=== PATIENT | female | born 1955 | race Caucasian/White ===

== ENCOUNTER → 2017-03-12 | Outpatient (CLI) | payer OTHER ==
[~2017-03-12] MED LIST: LORTAB 5/500 501 TAB PO
== END ==
LOC: MC.RAD 11:06
DX: Z12.31 Encounter for screening mammogram for malignant neoplasm of breast (principal)

== ENCOUNTER → 2021-05-16 | Outpatient (CLI) | payer MEDICARE ==
[~2021-05-16] MED LIST changes: +COZAAR 25MG25 MG/TAB PO; +GLUCOPHAGE500 MG/TAB PO; +LIPITOR 10MG10 MG PO; +MASON NATURAL2000 IU PO
== END ==
LOC: COL.RAD 04-19 14:45
DX: N95.0 Postmenopausal bleeding (principal)

== ENCOUNTER 2021-08-21 07:21 | Day surgery (SDC) | payer MEDICARE ==
[~2021-08-21] VITALS: Ht 167.6 cm; Wt 90.1 kg
[~2021-08-21 07:21] MED LIST changes: -COZAAR 25MG25 MG/TAB PO; -GLUCOPHAGE500 MG/TAB PO; -LIPITOR 10MG10 MG PO; -MASON NATURAL2000 IU PO
[2021-08-21 08:26] VITALS: BP 117/65; PULSE 111; TEMP 97.4
[2021-08-21] MEDS ORDERED: COZAAR 25MG25 MG/TAB PO (08:31)
[2021-08-21] MEDS ORDERED: GLUCOPHAGE500 MG/TAB PO (08:31)
[2021-08-21] MEDS ORDERED: LIPITOR 10MG10 MG PO (08:32)
[2021-08-21] MEDS ORDERED: MASON NATURAL2000 IU PO (08:32)
[2021-08-21 10:35] VITALS: BP 91/66; PULSE 92; TEMP 97.3
--- NOTE | 2021-08-21 10:35 | NUR ---
Patient arrived back into [facility]. Report received from MURTAZA Carlos and DELMY Engel. Patient awake and alert x4, reports doing well. No complaint of pain or nausea. Patient requesting orange juice and toast.
[2021-08-21 10:50] VITALS: BP 98/61; PULSE 97; TEMP 97.7
--- NOTE | 2021-08-21 10:50 | NUR ---
Patient doing well. Tolerating food and drink with no complaint of nausea or vomiting. Patient states pain is tolerable.
[2021-08-21 11:05] VITALS: BP 107/74; PULSE 95
--- NOTE | 2021-08-21 11:05 | NUR ---
Patient tolerated food and drink. Pain is controlled. When through discharge instructions with patient and patient's . Questions answered. Verbalized understanding. IV removed with no complications. Patient went to restroom and voided. Got dressed independently.
--- NOTE | 2021-08-21 11:10 | NUR ---
Patient escorted to patient entrance via wheelchair. Got into personal vehicle independently. Patient left in the care of her , Juanita.
== END 2021-08-21 11:10 | disposition home or self-care (01) ==
LOC: SDCO 07:21
DX: C54.1 Malignant neoplasm of endometrium (principal); E11.9 Type 2 diabetes mellitus without complications; E78.5 Hyperlipidemia, unspecified; Z79.84 Long term (current) use of oral hypoglycemic drugs; Z79.899 Other long term (current) drug therapy
CPT/HCPCS: C1788; J0690; J1644; J2405; J2704; J3010; J7120

== ENCOUNTER → 2022-01-25 | Outpatient (CLI) | payer MEDICARE ==
[~2022-01-25] MED LIST changes: +COZAAR 25MG25 MG/TAB PO; +GLUCOPHAGE500 MG/TAB PO; +LIPITOR 10MG10 MG PO; +MASON NATURAL2000 IU PO
== END ==
LOC: MC.RAD 10-26 08:15
DX: Z12.31 Encounter for screening mammogram for malignant neoplasm of breast (principal)

== ENCOUNTER 2022-12-13 20:21 | Emergency (ER) | payer MEDICARE ==
[~2022-12-13] VITALS: Ht 165.1 cm; Wt 90.9 kg
[2022-12-13 20:24] VITALS: TEMP 100.5
[2022-12-13 20:46] LABS: BASO % 0.2 % (0.0-2.0); GRAN # 7.5 K/mm3 (1.4-6.5); GRAN % 88.4 % (42.2-75.2); HEMOGLOBIN 11.3 g/dl (12.5-16.0); LYMPH # 0.3 K/mm3 (1.2-3.4); LYMPH % 3.4 % (20.0-51.0); MEAN CELL VOLUME 92 fl (80.0-100.0); MEAN CORPUSCULAR HEMOGLOBIN 30 pg (27-31); MEAN CORPUSCULAR HGB CONC 33 g/dl (33.0-37.0); MEAN PLATELET VOLUME 9.9 fl (7.4-10.4); MONO # 0.7 K/mm3 (0.1-0.6); MONO % 7.6 % (1.7-9.3); PLATELET COUNT 163 K/mm3 (130-400); RED BLOOD COUNT 3.77 M/mm3 (4.10-5.30); REDCELL DISTRIBUTION WIDTH-CV 16.3 % (11.5-14.5)
[2022-12-13 20:49] LABS: HEMATOCRIT 34.6 % (37.0-47.0)
[2022-12-13 21:02] LABS: ALBUMIN 3.2 gm/dL (3.4-4.8); BILIRUBIN,TOTAL 0.6 mg/dL (0.2-1.2); CALCIUM 9.2 mg/dL (8.4-10.2); CREATININE, serum 0.85 mg/dL (0.57-1.11); POTASSIUM 3.6 mmol/L (3.5-4.5)
[2022-12-13 21:49] LABS: COLLECTION METHOD CLEAN CATCH
[2022-12-13 21:55] LABS: URINE APPEARANCE Clear (CLEAR/HAZY); URINE BLOOD Negative (NEGATIVE); URINE COLOR Yellow (YELLOW); URINE GLUCOSE Negative (NEGATIVE); URINE KETONE 2+ (NEGATIVE); URINE NITRATE Negative (NEGATIVE); URINE PROTEIN(semi-quant) 1+ (NEGATIVE); URINE UROBILINOGEN 0.2 E.U/dL (0.2-1.0)
[2022-12-13 22:10] LABS: MUCOUS Present (NOT PRESENT); SQUAMOUS EPITHELIAL 0-2 /hpf (0-10); URINE BACTERIA Rare /hpf (NONE SEEN)
[2022-12-13 23:00] VITALS: BP 118/66; PULSE 94
== END 2022-12-13 23:00 | disposition home or self-care (01) ==
LOC: COL.ER 20:21
PROVIDERS: Physician Assistant
DX: U07.1 COVID-19 (principal)
CPT/HCPCS: J7030

== ENCOUNTER → 2024-06-02 | Outpatient (CLI) | payer MEDICARE | LOC: MC.RAD 11:05 | DX: Z12.31 Encounter for screening mammogram for malignant neoplasm of breast (principal) ==